=== PATIENT | female | born 1955 | race Caucasian/White ===

== ENCOUNTER 2021-05-15 00:58 | Emergency (ER) | payer SELFPAY | END 2021-05-15 02:43 | disposition left against medical advice (07) | LOC: ER1 00:58 | DX: R50.9 Fever, unspecified (principal); R05.9 Cough, unspecified; R51.9 Headache, unspecified; Z20.822 Contact with and (suspected) exposure to COVID-19 | CPT/HCPCS: 0240U; 99281 ==